=== PATIENT | male | born 1970 | race Caucasian/White ===

== ENCOUNTER 2018-12-15 08:24 | Observation (INO) | payer SELFPAY ==
[2018-12-15] MEDS ORDERED: NS 0.9% 1000 ML** 1,000 ML IV ONE (08:36)
--- NOTE | 2018-12-15 08:39 | ED ---
Abdominal Pain/Male - HPI Summary HPI Summary: A 48 y/o male presents to [facility] with a chief complaint of lower abdominal pain since yesterday. The patient also reports diarrhea (loose stool) and claims that he has had some bright red blood in his stool. He denies fever, N/V, dysuria, hematuria or constipation. At triage he rated his pain as a 4/10 in severity. He reports that he has a shooting pain that radiates to his rectum and testicles. He denies having any recent sickness, change in diet, or abx use. He claims that he has not had these symptoms before. He denies any PMHx, SHx or FHx. He reports EtOH use daily, claiming that he gets drunk occasionally , and smoking. He denies drug use. - History of Current Complaint Chief Complaint: EDAbdPain Stated Complaint: LOWER ABD PAIN/BLOOD IN STOOL PER PT Time Seen by Provider: 12/15/18 08:31 Hx Obtained From: Patient Onset/Duration: Sudden Onset, Lasting Hours, Still Present Timing: Constant, Lasting Hours Severity Initially: Moderate Severity Currently: Moderate Pain Intensity: 4 Pain Scale Used: 0-10 Numeric Location: Diffuse - lower Radiates: Yes Radiates to: Other - testicles and rectum Character: Other: - shooting Aggravating Factor(s): Nothing Alleviating Factor(s): Nothing Associated Signs And Symptoms: Positive: Blood in Stool, Diarrhea. Negative: Fever, Urinary Symptoms, Nausea, Vomiting - Allergies/Home Medications Allergies/Adverse Reactions: Allergies Allergy/AdvReac Type Severity Reaction Status Date / Time latex Allergy Rash Verified 12/15/18 08:29 Penicillins Allergy Hives Verified 12/15/18 08:29 shellfish derived Allergy Anaphylatic Verified 12/15/18 08:30 Shock Home Medications: Home Medications NK [No Home Medications Reported] 12/15/18 [History Confirmed 12/15/18] PMH/Surg Hx/FS Hx/Imm Hx Infectious Disease History: No Infectious Disease History: Denies: Traveled Outside the [place] in Last 30 Days Review of Systems Negative: Fever Gastrointestinal: Negative - constipation Positive: Abdominal Pain, Diarrhea, Other - positive: bright red blood in stool. Negative: Vomiting, Nausea Negative: dysuria, hematuria All Other Systems Reviewed And Are Negative: Yes Physical Exam - Summary Physical Exam Summary: VITAL SIGNS: Reviewed. GENERAL: Patient is a well-developed and nourished male who is lying comfortable in the stretcher. Patient is not in any acute respiratory distress. HEAD AND FACE: Normocephalic and atraumatic. EYES: PERRLA, EOMI x 2, No injected conjunctiva. EARS: Hearing grossly intact. Ear canals and tympanic membranes are WNL. MOUTH: Oropharynx within normal limits. NECK: Supple, trachea is midline, no adenopathy, no JVD. CHEST: Symmetric, no tenderness at palpation LUNGS: Clear to auscultation bilaterally. No wheezing or crackles. CVS: RRR, S1 and S2 present, no murmurs or gallops appreciated. ABDOMEN: Soft, lower abdominal tenderness left more than right. No signs of distention. Positive bowel sounds. No rebound no guarding, and no masses palpated. No abdominal bruit or pulsations. EXTREMITIES: FROM in all major joints, no edema, no cyanosis or clubbing. NEURO: Alert and oriented x 3. No acute neurological deficits. Speech is normal. SKIN: Dry and warm Triage Information Reviewed: Yes Vital Signs On Initial Exam: Initial Vitals Temp Pulse Resp BP Pulse Ox 98 F 110 16 180/107 100 12/15/18 08:26 12/15/18 08:26 12/15/18 08:26 12/15/18 08:26 12/15/18 08:26 Vital Signs Reviewed: Yes Diagnostics - Vital Signs Vital Signs Temp Pulse Resp BP Pulse Ox 12/15/18 08:26 98 F 110 16 180/107 100 - Laboratory Result Diagrams: 12/15/18 08:48 12/15/18 08:48 Lab Statement: Any lab studies that have been ordered have been reviewed, and results considered in the medical decision making process. - CT abdomen/pelvis CT Interpretation Completed By: Radiologist Summary of CT Findings: Mixed pattern at the sigmoid colon with both contiguous mild mural thickening extending. from the rectum proximal which may reflect ulcerative colitis or nonspecific colitis as. well as a more focal region of circumferential thickening concerning for potential colon. carcinoma especially given history of blood in stool. Further assessment with optical. inspection of the bowel mucosa warranted. Presence of mild perienteric fat reticulation. and small lymph node adjacent to the affected region of the sigmoid colon is concerning for potential transmural extension. Solitary 1 cm hypodense lesion at the LEFT lateral hepatic segment is most suggestive. of a cyst or hemangioma. Given the clinical context consider ultrasound for further. assessment. ED physician has reviewed this imaging report. Re-Evaluation - Re-Evaluation First Eval Re-Evaluation Time: 11:23 Change: Unchanged Comment: Discussed results and plan for admission. Abdominal Pain Male Course/Dx - Course Assessment/Plan: This patient is a 48-year-old male who presents to the emergency department with a chief complaint of follow-up abdominal pain. Blood work without any significant abnormality except for glucose of 101, CRP is 25. Abdominal and pelvic CT IMPRESSION: #. Mixed pattern at the sigmoid colon with both contiguous mild mural thickening extending from the rectum proximal which may reflect ulcerative colitis or nonspecific colitis as well as a more focal region of circumferential thickening concerning for potential colon carcinoma especially given history of blood in stool. Further assessment with optical inspection of the bowel mucosa warranted. Presence of mild perienteric fat reticulation and small lymph node adjacent to the affected region of the sigmoid colon is concerning for potential transmural extension. #. Solitary 1 cm hypodense lesion at the LEFT lateral hepatic segment is most suggestive of a cyst or hemangioma. Given the clinical context consider ultrasound for further assessment. I discussed my physical exam and findings with Dr. Berger from GI and he recommends for the patient to be admitted for a possible colonoscopy. I discuss my physical exam, findings and test results with Dr. Araya from the hospitalist services and he agrees to admit patient to his services. Patient is hemodynamically stable alert and oriented x 3. - Diagnoses Differential Diagnosis/HQI/PQRI: Appendicitis, Bowel Obstruction, Constipation, Diverticulitis, Urinary Tract Infection Provider Diagnoses: Lower abdominal pain - Provider Notifications Discussed Care Of Patient With: Anders Berger Time Discussed With Above Provider: 11:10 Instructed by Provider To: Other - Recommends admission Discharge - Sign-Out/Discharge Documenting (check all that apply): Patient Departure - admit Patient Received Moderate/Deep Sedation with Procedure: No - Discharge Plan Condition: Fair Disposition: ADMITTED TO [facility] - Billing Disposition and Condition Condition: FAIR Disposition: Admitted to [facility] - Attestation Statements Document Initiated by Scribe: Yes Documenting Scribe: Mitch Silver Provider For Whom Scribe is Documenting (Include Credential): Eder Roman MD Scribe Attestation: I, Mitch Silver, scribed for Eder Roman MD on 12/15/18 at 1822. Scribe Documentation Reviewed: Yes Provider Attestation: The documentation as recorded by the scribe, Mitch Silver accurately reflects the service I personally performed and the decisions made by me, Eder Roman MD Status of Scribe Document: Viewed Consult Consult: At 11:[address] Araya, hospitalist, who accepted the patient for admission.
[2018-12-15 09:03] LABS: ABS Basophils 0.1 10^3/ul (0-0.2); ABS Eosinophils 0.1 10^3/ul (0-0.6); ABS Lymphocytes 1.7 10^3/ul (1.0-4.8); ABS Monocytes 0.8 10^3/ul (0-0.8); ABS Neutrophils 7.5 10^3/ul (1.5-7.7); ABS Nucleated RBC 0 10^3/ul; Eosinophil % 0.7 %; Hematocrit 45 % (36-46); Hemoglobin 15.5 g/dL (14.0-18.0); Lymphocyte % 16.5 %; Mean Corpuscular HGB Conc 34 g/dL (31-36); Mean Corpuscular Hemoglobin 32 pg (27-31); Mean Corpuscular Volume 94 fL (80-94); Mean Platelet Volume 7.9 fL (7.4-10.4); Nucleated Red Blood Cells % 0; Platelet Count 261 10^3/uL (150-450); Red Blood Count 4.82 10^6 /uL (4.18-5.48); Red Cell Distribution Width 13 % (10.5-15); White Blood Count 10.2 10^3/uL (3.5-10.8)
[2018-12-15 09:35] LABS: Albumin 4.6 g/dL (3.2-5.2); Albumin/Globulin Ratio 1.6 (1-3); BUN/Creatinine Ratio 13.3 (8-20); C Reactive Protein 25.22 mg/L (<8.01); Calcium 9.5 mg/dL (8.6-10.3); EGFR Non-African American 90.1 (>60); Globulin 2.9 g/dL (2-4); Magnesium 2.1 mg/dL (1.9-2.7); Potassium 4.2 mmol/L (3.5-5.0); Total Bilirubin 0.7 mg/dL (0.2-1.0); Total Protein 7.5 g/dL (6.4-8.9)
[2018-12-15] MEDS ORDERED: Iohexol 300* (CONTRAST) 10 ML SDV IV ONE (10:03)
[2018-12-15] MEDS ORDERED: Acetaminophen TAB* 325 MG PO PRN (12:28)
--- NOTE | 2018-12-15 13:20 | HP ---
HISTORY AND PHYSICAL: DATE OF ADMISSION: 12/15/18 ADMITTING PROVIDER: Franklin Araya MD. PRIMARY CARE PROVIDER: None. CHIEF COMPLAINT: Abdominal pain and blood in his stools. HISTORY OF PRESENT ILLNESS: Navjot Charles is a 48-year-old male with past medical history of current smoker, approximately 10-pack years, who was in his normal state of health when he woke up the day prior to admission with abdominal pain just below his belly button. He describes it as coming intermittently in waves and can get quite intense, 10/10 pain. Otherwise, it never completely resolves and is more achy in nature. He denies any association with food intake. If he has to defecate, the pain is worse, but the pain is not worse with the process of defecation. He has also noticed streaks of blood and mucus in his bowel movements. All these symptoms are completely new for him. He denies any nausea or vomiting. He has never had a colonoscopy. Upon presentation to the [facility] Room, he had a CT abdomen and pelvis with IV and oral contrast with impression of mixed pattern of the sigmoid colon with both contiguous mild mural thickening extending from the rectum proximal which may reflect ulcerative colitis or nonspecific colitis as well as a more focal region of circumferential thickening concerning for potential colon carcinoma especially given history of blood in stool. Further assessment with optical inspection of the bowel mucosa warranted. Presence of mild perienteric fat reticulation and small lymph node adjacent to the affected region of the sigmoid colon is concerning for potential transmural extension. There is also a solitary 1-cm hypodense lesion at the left lateral hepatic segment, most suggestive of a cyst or hemangioma. Given the clinical context, consider ultrasound for further assessment. Dr. Roman in the emergency room has contacted Dr. Berger, explained the above findings, and Dr. Berger recommended admission with preparation for colonoscopy for further assessment. PAST MEDICAL HISTORY: Current smoker. PAST SURGICAL HISTORY: Includes right hand surgery. ALLERGIES: LATEX, PENICILLIN, SHELLFISH. FAMILY HISTORY: His mother and father are in the room. Mother has hypertension and osteoarthritis. Father has osteoarthritis. He has 1 brother who is healthy, 1 sister who has a history of cervical cancer. He has 2 paternal uncles who of pancreatic cancer, 1 paternal aunt who had brain cancer. Maternal grandfather had melanoma and maternal grandmother had cervical cancer. SOCIAL HISTORY: The patient smoked for approximately 20 years, approximately half a pack per day on average (1 pack a day when younger, currently 5 cigarettes a day). He drinks a few beers each day. 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 His father, Javi Charles, will be his medical surrogate. He desires to be a full code. PHYSICAL EXAMINATION GENERAL APPEARANCE: No acute distress. VITAL SIGNS: Temperature 98.0; pulse rate initially 110, currently 92; satting 99% on room air; blood pressure 145/94, initially 180/107. HEENT: Normocephalic, atraumatic. Pupils are equal, round, and reactive to light. Extraocular motions intact. No scleral icterus. No oropharyngeal lesion. NECK: Supple. LUNGS: Clear to auscultation bilaterally with no wheezing, rales, or rhonchi. CARDIOVASCULAR: Regular rate and rhythm. No murmurs, rubs, or gallops. ABDOMEN: Soft. Some mild tenderness just below the umbilicus. Eagle sign negative. No rebound or guarding. EXTREMITIES: Warm and well perfused. No peripheral edema. NEURO: Cranial nerves II through XII intact. Relations Manager strength 5/5. Hip flexion, plantar and dorsiflexion 5/5. SKIN: No lesions. No rashes. DIAGNOSTIC STUDIES/LAB DATA: White count 10.2, hemoglobin 15.5, hematocrit 45 , platelets 261. Sodium 136, potassium 4.2, chloride 101, carbon dioxide 27, BUN 12, creatinine 0.90, glucose 101, lactic acid 1.4, magnesium 2.1. Total bili 0.7, AST 18, ALT 18, alk phos 47. CRP 25. Lipase 21. Imaging: CT abdomen and pelvis as above, impression: Mixed pattern of the sigmoid colon with both contiguous mild mural thickening extending from the rectum proximal which may reflect ulcerative colitis or nonspecific colitis as well as a more focal region of circumferential thickening concerning for potential colon carcinoma especially given history of blood in stool. Further assessment with optical inspection of the bowel mucosa warranted. Presence of mild perienteric fat reticulation and small lymph node adjacent to the affected region of the sigmoid colon is concerning for potential transmural extension. There is also a solitary 1- cm hypodense lesion at the left lateral hepatic segment, most suggestive of a cyst or hemangioma. Given the clinical context, consider ultrasound for further assessment. ASSESSMENT AND PLAN: Navjot Charles is a 48-year-old male with past medical history of current smoker, presenting with periumbilical abdominal pain, at times very intense, otherwise mostly achy, and streaks of hematochezia for the last day, and CT abdomen and pelvis with IV and p.o. contrast concerning for some mild mural thickening, but with a more focal region of circumferential thickening concerning for potential colon cancer given the history of also hematochezia. Circumferential colon thickening, abdominal pain, and hematochezia. Appreciate recommendations from Dr. Berger, who will be seeing the patient in consultation , who recommended preparation for a colonoscopy likely tomorrow. I will continue him on a clear liquid diet, his last meal was 8 p.m. last night, and then give him GoLYTELY starting at dinnertime. Differential includes colon cancer, potential ulcerative colitis. He has never had a colonoscopy. He is hemodynamically stable, although initially tachycardic. We will put him on telemetry given the gastrointestinal blood loss. For his smoking, we will give him a nicotine patch. For DVT prophylaxis, put him on SCDs given his hematochezia. He is a full code. Medical surrogate is his father, Javi. [id number]/[facility] #: [id number] WALI
[2018-12-15] MEDS ORDERED: PEG 3000 GI LAVAGE* 1 GALLON PO ONE (17:00)
[2018-12-15] MEDS: Nicotine PATCH 7 MG/24 HR* PATCH TRANSDERM SCH (17:44)
--- NOTE | 2018-12-15 17:47 | CONS ---
CC: Primary Care Physician * CONSULTATION REPORT: DATE OF CONSULT: 12/15/18 REQUESTING PROVIDER: Dr. Roman in the emergency room and also Dr. Franklin Araya. REASON FOR CONSULT: Abnormal CT, abdominal pain, rectal bleeding. HISTORY OF PRESENT ILLNESS: This is a pleasant 48-year-old male with past medical history of smoking and hand surgery, who presents with new-onset abdominal pain and bright red blood in the stools. He states that he was in his normal health prior to yesterday when he woke up with some cramping abdominal pain in bilateral lower quadrants. It would come in waves, at times could be intense, 10/10 otherwise, to 4/10 and at times would completely go away. This was cramping in nature, worse with defecation. He has noticed that his stool has been smaller character and has noticed streaking of the blood for the last few days. He states occasionally he would see blood when he wipes intermittently on and off for the last year or so. Denies any nausea or vomiting. Admits to occasional reflux, but not on a regular basis. Denies any dysphagia or odynophagia. Denies any family history of colon cancer or stomach cancer. No family history of inflammatory bowel disease or ulcerative colitis. He has a sister that has cervical cancer. He denies any weight loss or weight gain. Denies any recent uncooked food ingestion or new foods. No new medications were started. He states that his weight has been stable for the last year. The remainder of the 14-point review of systems is grossly negative. PAST MEDICAL HISTORY: Smoking. PAST SURGICAL HISTORY: Right hand surgery. HOME MEDICATIONS: No medications at home. ALLERGIES: Include LATEX, PENICILLIN, and SHELLFISH. FAMILY HISTORY: Sister has cervical cancer. He had few uncles that of pancreatic cancer. SOCIAL HISTORY: Current smoker. He drinks about 3 craft beers a day. 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 REVIEW OF SYSTEMS: Remainder of the 14-point review of systems grossly negative. PHYSICAL EXAM: Vital Signs: Blood pressure is 132/86, pulse 84, respiratory rate 16, temperature 99.8. In general, he is alert and oriented x3. No acute distress. HEENT: Atraumatic, normocephalic. Pupils equal, round, and reactive to light. Extraocular movements are intact. Conjunctivae are pink. Sclerae anicteric. Neck: Supple. Cardiovascular: Regular rate and rhythm. S1 and S2. Lungs: Clear to auscultation bilaterally. Abdomen: Soft, mild tenderness to palpation bilateral lower quadrants. No guarding or rebound. Bowel sounds positive. Extremities: No clubbing, no cyanosis, no edema. Skin: No rash or lesions. Neuro exam is nonfocal. DIAGNOSTIC STUDIES/LAB DATA: Hemoglobin 15.5, platelet count 261. Sodium 136, potassium 4.2, creatinine 0.9, glucose 101. CRP is 25.22. Albumin is 4.6. He had a CT of the abdomen and pelvis. This showed mural thickening extending from the rectum proximal to the sigmoid colon. In addition, there is more focal circumferential thickening in this area with concern for possible colon carcinoma with a small lymph node adjacent to this region in the sigmoid colon, this is concerning according to the CT report for potential transmural extension. In addition, there is a solitary 1-cm hypodense lesion in the left lateral hepatic segment, most suggestive of a cyst or hemangioma, but given the clinical context, consider ultrasound for further assessment. ASSESSMENT AND PLAN: This is a 48-year-old male with abnormal CT and rectal bleeding. 1. Abnormal CT. Given the nature, we would recommend direct endoscopic evaluation. Given his abdominal pain and bleeding, recommend observing overnight making sure his hemoglobin has stabilized, making sure we have H and Hs roughly every 6 hours if ongoing bleeding, and we will plan on colonoscopy evaluation on 12/16/18 of this area. Differential includes ulcerative colitis, inflammatory bowel disease to potentially carcinoma. 2. Hematochezia. Continue to observe. Hemoglobin stable at this point, hemodynamically stable. Recommend frequent H and Hs. Appears to be lower gastrointestinal in etiology. 3. Change in bowel habits. As above. 4. Alcohol use. Counseled in regards to the amount. Recommend discontinuation. [id number]/[facility] #: [id number] WALI
[2018-12-15 18:05] LABS: Urine Appearance Clear; Urine Bacteria Absent (Absent); Urine Bilirubin Negative (Negative); Urine Blood 1+ (Negative); Urine Color Straw; Urine Glucose Negative (Negative); Urine Ketones Negative (Negative); Urine Nitrite Negative (Negative); Urine Protein Negative (Negative); Urine Red Blood Cell Trace(0-2/hpf) (Absent); Urine Specific Gravity 1.025 (1.010-1.030); Urine Urobilinogen Negative (Negative); Urine White Blood Cell Absent (Absent)
[2018-12-15] MEDS ORDERED: Nicotine Patch Removal NOTE PATCH OFF SCH (21:00)
[2018-12-16 06:19] LABS: ABS Basophils 0 10^3/ul (0-0.2); ABS Eosinophils 0.2 10^3/ul (0-0.6); ABS Lymphocytes 1.6 10^3/ul (1.0-4.8); ABS Monocytes 0.5 10^3/ul (0-0.8); ABS Neutrophils 3.2 10^3/ul (1.5-7.7); ABS Nucleated RBC 0 10^3/ul; Hematocrit 43 % (36-46); Hemoglobin 14.5 g/dL (14.0-18.0); Lymphocyte % 28.9 %; Mean Corpuscular HGB Conc 34 g/dL (31-36); Mean Corpuscular Hemoglobin 32 pg (27-31); Mean Corpuscular Volume 94 fL (80-94); Mean Platelet Volume 8.2 fL (7.4-10.4); Nucleated Red Blood Cells % 0; Platelet Count 208 10^3/uL (150-450); Red Blood Count 4.56 10^6 /uL (4.18-5.48); Red Cell Distribution Width 13 % (10.5-15); White Blood Count 5.6 10^3/uL (3.5-10.8)
[2018-12-16] MEDS: Nicotine PATCH 7 MG/24 HR* PATCH TRANSDERM SCH (11:04)
[2018-12-16] MEDS ORDERED: Midazolam* 1 MG/ML 10 ML VIAL (10 MG) ONE (14:51)
[2018-12-16] MEDS ORDERED: fentaNYL* 50 MCG/ML 2 ML VIAL (100 MCG VIAL) ONE (14:51)
[2018-12-16 20:17] VITALS: BP 127/73
--- NOTE | 2018-12-16 23:03 | PRO ---
DATE: 12/16/18 - ROOM #420 REFERRING PHYSICIANS: Dr. Anders Berger, Dr. Franklin Araya. * PROCEDURE: Colonoscopy to cecum and biopsy of thickened mid sigmoid erythematous fold; cold snare polypectomy, 5 mm proximal right colon thickened fold and 8 mm mid sigmoid pedunculated polyp. INDICATION: This 48-year-old man developed abdominal pain at 3 or 4 in the morning on 12/15/18. Around 5:30 a.m., he passed loose stool with blood. He had several loose stools. He maintains he had no trouble at all Wednesday or Wednesday preceding this or the preceding week. His normal bowel pattern is twice a day. In the emergency room, he was afebrile, white count normal at 10.2. CRP 25.22 and albumin 4.6. He did take most of a prep it is reported. Discussion was held regarding colonoscopy and likely obtaining specimens. There is no family history of gastrointestinal problems involving the colon. A couple of relatives have pancreatic cancer. ENDOSCOPIST: Daniel MEDICATIONS: Midazolam 10, fentanyl 125. FINDINGS: He is a middle-aged man with slightly pasty complexion, in no overt distress. His abdomen is firm with normal bowel sounds and no focal tenderness , although he is a little touchy in the infraumbilical area. He was positioned left side down and moderate sedation induced with sequential doses of medication. Initial views show a fair prep with a lot of mucoid fecal greenish slime. The rectal mucosa appeared normal. The mucosa in the rectosigmoid and distal sigmoid appeared normal. Mid sigmoid seemed a little restricted with slightly swollen folds and a narrow lumen. There was a little bit of erythema focally at about 25 or 30 cm. There was no purulence or exudate and no erosions or ulcers. The scope advanced with a little bit of difficulty into the descending. A few diverticula were seen. Periodic lavage revealed normal mucosa. No blood was seen in the lumen at all at any point. Scope eventually traversed into the transverse and then right colon. There was a lot of adherent bile in the right colon, but the contours appeared normal and there were no erosions, purulence, or masses. The cecum had adherent bile film that was lavaged. The mucosa was entirely normal. There was a diminutive polyp 1 haustral marking distal to the ileocecal valve. This was removed with a cold snare, although it did not appear to have the potential to contribute to any of his symptoms. The ileocecal valve appeared normal and the scope could transiently see the slit of the ileocecal valve which appeared normal. The terminal ileum could not be entered. Coming back slowly, no abnormalities were seen in the right transverse or descending colon. In the mid sigmoid, there was an 8-mm pedunculated polyp removed with cold snare and suction retrieved. A trap was filled with fecal sludge for culture. Two biopsies were taken from an area of erythema in the mid to distal sigmoid at about 25 cm. Again, there were no ulcerations or exudate. Final views in the rectum were normal. IMPRESSION: 1. Minimal sigmoid diverticulosis. 2. Colon polyps - two small lesions not contributing to this clinical illness were removed for the patient's benefit. 3. Mid to distal sigmoid erythema - source unclear though infection is being considered as might be a self-limited, self-terminating ischemic event, though the mildness of the findings would predict nondiagnostic histology. 4. Acute clinical illness with acute pain and loose stool with blood. Cause not clear and would cautiously refeed Addendum: mid sigmoid TA - f/u 5 yrs ; other Bx nonspecific. [id number]/[facility] #: [id number] MTDD
--- NOTE | 2018-12-19 06:22 | DS ---
CC: [facility] * DISCHARGE SUMMARY: DATE OF ADMISSION: 12/15/18 DATE OF DISCHARGE: 12/16/18 ADMITTING PROVIDER: Franklin Araya MD PRIMARY CARE PROVIDER: None. He plans to follow up with the [facility] upon discharge. CONSULTING GASTROENTEROLOGISTS: Dr. Berger and Dr. Sanchez. CHIEF COMPLAINT: Abdominal pain, blood in his stools. PRINCIPAL DIAGNOSIS: Hematochezia of unclear origin, possible infectious versus mild transient bowel ischemia. HISTORY OF PRESENT ILLNESS AND HOSPITAL COURSE: Navjot Charles is a 48-year- old male with past medical history of smoking 10 pack years, who was in his normal state of health when he woke up the day prior to admission with abdominal pain just below his bellybutton. This pain would come intermittently since then in waves. It can get quite intense up to 10/10 pain and never completely resolves and it is achy in nature. Denies any association with food. Has worse pain if he feels like he has to defecate, though the actual process of defecation is not painful. A few hours after this first episode, he does have also some blood per rectum. He has never had a cough. He denied any nausea or vomiting. He presented to [facility] Emergency Department. He had CT of the abdomen and pelvis with IV and oral contrast. Impression was mixed pattern of sigmoid colon with both contiguous and mild mural thickening extending from the rectum proximal which may reflect ulcerative colitis or nonspecific colitis as well as a more focal region of circumferential thickening concerning for potential colon carcinoma especially given history of blood in the stool. Further assessment with optical inspection of the bowel mucosa is warranted. Dr. Berger of Gastroenterology was consulted on the case and had recommended colonoscopy. Dr. Sanchez performed the next day, that was ultimately somewhat unrevealing to explain the source of his bleeding and acute pain. He was found to have minimal sigmoid diverticulosis. There were 2 small colon polyps removed that do not contribute to presenting symptoms. There was mild mid to distal sigmoid erythema thought secondary to his infections or self-limited, self-terminating ischemic event. Two biopsies were taken and these are still pending. He had stool cultures that were negative so far for E. coli O157 and no enteric pathogens were isolated from the stool culture. Shiga toxins I and II are still pending. He was able to tolerate advancing diet after the procedure, was pleading to go home. Of note, he has some concern about his lack of medical insurance at the moment. Of note, his hemoglobin on presentation was 15.5/45 and on the day of discharge 14.5/43. He is hemodynamically stable. His CRP was 25.2. He is being discharged to follow up at the [facility] to review biopsy results and establish care with a PCP. DISCHARGE MEDICATIONS: Include: 1. Nitroglycerin patch 7 mg per 24 hours (new). 2. Omeprazole 20 mg p.o. daily (new). DISCHARGE DIET: His diet was recommended to be low fat initially for the next week, as well as heart healthy. FOLLOWUP: Please follow up with [facility]. He was told to call the clinic on 12/19/18 and asked to be seen likely either Wednesday, or 12/22/18. He was told to return the hospital with any evidence of lightheadedness, dizziness, chest pain, shortness of breath, loss of consciousness, profuse bleeding or severe abdominal pain. He was strongly encouraged to quit smoking given that the differential included possible acute self-limited mesenteric ischemia. DISPOSITION: Home. CONDITION: Improved. TIME SPENT ON DISCHARGE: 35 minutes. [id number]/[facility] #: [id number] WALI
== END 2018-12-16 19:30 | disposition home or self-care (01) ==
LOC: ED 08:24 → MED 11:30
PROVIDERS: ADMIT Internal Medicine; ATTEND Internal Medicine
DX: K92.1 Melena (principal); Z88.0 Allergy status to penicillin; F17.210 Nicotine dependence, cigarettes, uncomplicated; R16.0 Hepatomegaly, not elsewhere classified; N28.89 Other specified disorders of kidney and ureter; R19.7 Diarrhea, unspecified; R10.33 Periumbilical pain; K57.31 Diverticulosis of large intestine without perforation or abscess with bleeding; D12.5 Benign neoplasm of sigmoid colon
CPT/HCPCS: 36415; 74177; 76705; 80053; 81003; 81015; 82270; 82550; 83605; 83690; 83735; 85025; 86140; 87045; 87046; 87899; 88305; 96360; 96361; 99156; 99157; 99283; A9270-GY; G0378; J2250; J3010; Q9967